=== PATIENT | male | born 1930 ===

== ENCOUNTER 2017-02-27 09:14 | Observation (INO) | payer MEDICARE, OTHER ==
[2017-02-27 10:54] LABS: BASO # 0.1 K/uL (0.0-0.2); BASO % 1.7 % (0.0-2.0); EOS # 0.5 K/uL (0.0-0.7); EOS % 5.8 % (0.0-4.0); HEMOGLOBIN 12.2 g/dL (12.0-18.0); LYMPH # 2.1 K/uL (1.0-4.3); LYMPH % 26.7 % (20.0-40.0); MEAN CORPUSCULAR HGB CONC 32.6 g/dL (33.0-37.0); MEAN PLATELET VOLUME 10.6 fl (7.2-11.7); MONO # 0.6 K/uL (0.0-0.8); MONO % 7.3 % (0.0-10.0); NEUT # 4.6 K/uL (1.8-7.0); NEUT % 58.5 % (50.0-75.0); RBC 4.05 Mil/uL (4.40-5.90); RED CELL DISTRIBUTION WIDTH 13.9 % (11.5-14.5); WHITE BLOOD COUNT 7.8 K/uL (4.8-10.8)
[2017-02-27 11:04] LABS: CALCIUM 9.7 mg/dL (8.4-10.2); GFR AFRICAN-AMERICAN > 60; GFR NON-AFRICAN AMERICAN 57
[2017-02-27 11:06] LABS: BLOOD UREA NITROGEN 22 mg/dl (9-20)
[2017-02-27] MEDS ORDERED: Morphine 4 MG/ML VIAL IVP ONE (11:25)
--- NOTE | 2017-02-27 11:29 | ED PDOC ---
HPI: General Adult Time Seen by Provider: 02/27/17 09:46 Chief Complaint (Nursing): Abnormal Skin Integrity Chief Complaint (Provider): Abnormal Skin Integrity History Per: Patient History/Exam Limitations: no limitations Onset/Duration Of Symptoms: Days (x3 weeks) Current Symptoms Are (Timing): Still Present Additional Complaint(s): 86 year old male presents to the emergency department with a complaint of a right-sided chest wall pain with redness noted right above the pacemaker that started 3 weeks ago. States 1st pacemaker lasted about 11 years and the second pacemaker (the one he has in place now) is going to be 8 years. Reports he visited his ship pilot yesterday, 02/26/2017, who did not do anything to make him feel better. Patient has an upcoming appointment with his primary care doctor. Denies fever, cough, shortness of breath, abdominal pain, or chest pain. PMD: Dr. Seth Anderson MD Past Medical History Reviewed: Historical Data, Nursing Documentation, Vital Signs Vital Signs: Last Vital Signs Temp 98.1 F 02/28/17 12:36 Pulse 74 02/28/17 12:36 Resp 20 02/28/17 12:36 BP 137/86 02/28/17 12:36 Pulse Ox 94 L 02/28/17 12:36 - Medical History PMH: Diabetes, HTN - Surgical History Surgical History: Pacemaker Other surgeries: Multiple abdominal surgeries - Family History Family History: States: Unknown Family Hx - Living Arrangements Living Arrangements: With Family - Social History Current smoker - smoking cessation education provided: No Alcohol: None Drugs: Denies - Home Medications Home Medications: Ambulatory Orders Medication Instructions Recorded Ammonium Lactate 12% [Lac-Hydrin 1 applic TOP TID #1 bottle 02/28/17 12% Lotion (225 g)] Clobetasol 0.05% [Temovate CREAM] 1 applic TOP BID #1 tube 02/28/17 Econazole 1% [Spectazole Cr] 1 applic TP BID 30 Days #1 tube 02/28/17 Losartan [Cozaar] 50 mg PO DAILY tab 02/28/17 Metoprolol Succinate [Toprol XL] 25 mg PO DAILY tab 02/28/17 Mupirocin 2% Ointment [Bactroban 1 applic TOP BID #1 tube 02/28/17 Ointment] SITagliptin [Januvia] 50 mg PO DAILY tab 02/28/17 - Allergies Allergies/Adverse Reactions: Allergies Allergy/AdvReac Type Severity Reaction Status Date / Time No Known Allergies Allergy Verified 02/27/17 09:47 Review of Systems ROS Statement: Except As Marked, All Systems Reviewed And Found Negative (As per HPI, otherwise negative) Constitutional: Negative for: Fever Cardiovascular: Positive for: Other (Right sided chest wall pain with redness above the pacemaker). Negative for: Chest Pain Respiratory: Negative for: Cough, Shortness of Breath Gastrointestinal: Negative for: Abdominal Pain Physical Exam - Reviewed Nursing Documentation Reviewed: Yes Vital Signs Reviewed: Yes - Physical Exam Appears: Positive for: Well, No Acute Distress Head Exam: Positive for: NORMAL INSPECTION, NORMOCEPHALIC Skin: Positive for: Warm, Dry, Rash Cardiovascular/Chest: Positive for: Regular Rate, Rhythm, Other (Right chest region with erythema well demarcated around the pacemaker exactly above it. ). Negative for: Chest Non Tender, Murmur Respiratory: Positive for: Normal Breath Sounds. Negative for: Accessory Muscle Use, Respiratory Distress Gastrointestinal/Abdominal: Positive for: Normal Exam, Soft, Other (Multiple abdominal scars noted ). Negative for: Tenderness Extremity: Positive for: Normal ROM. Negative for: Pedal Edema Neurologic/Psych: Positive for: Alert, Oriented (x3) - Laboratory Results Result Diagrams: 02/27/17 10:51 02/28/17 07:06 - ECG O2 Sat by Pulse Oximetry: 96 (RA) Pulse Ox Interpretation: Normal - Radiology X-Ray: Interpreted by Me, Viewed By Me X-Ray Interpretation: No Acute Disease Medical Decision Making Medical Decision Making: Time: 1016 Initial Impression: Chest pain, Dermatitis or cellulitis Diff include ACS, skin infection Initial Plan: EKG Chest x-ray Morphine 2 mg IVP Reevaluation EKG: Atrial pace rhythm with left axis deviation. QRS note with RBBB. No ST changes at 71 bpm. Time: 1345 Admit to hospital: as observation in telemetry for chest pain and pacemaker pain under the care of Dr. Katy Chan~Attestation: Documented by Reba Paul, acting as a scribe for Patrick Mills MD. Provider Scribe~Attestation: All medical record entries made by the Scribe were at my direction and personally dictated by me. I have reviewed the chart and agree that the record accurately reflects my personal performance of the history, physical exam, medical decision making, and the department course for this patient. I have also personally directed, reviewed, and agree with the discharge instructions and disposition. Disposition - Clinical Impression Clinical Impression: Chest pain, Dermatitis - Patient ED Disposition Is Patient to be Admitted: Yes (observation in telemetry) Doctor Will See Patient In The: ED Counseled Patient/Family Regarding: Studies Performed, Diagnosis - Disposition Disposition Time: 13:45 Condition: STABLE - Pt Status Changed To: Hospital Disposition Of: Observation - POA Present On Arrival: None
[2017-02-27] MEDS ORDERED: Morphine 4 MG/ML VIAL ONE (11:30)
--- NOTE | 2017-02-27 14:33 | CP.PCM.HP ---
History of Present Illness - History of Present Illness History of Present Illness: CC: "Chest pain where my pacemaker is" HPI: 86 YO Male with PMH of HTN, DM, CAD and s/p pacemaker (8 yrs) presents to ED for R wall chest pain at pacemaker site. Pain stared 3 weeks ago, and has remained stable for the past 3 weeks. Described as a sharp pain around pacemaker site, lasting a few mins, no radiation, itchiness, and rates it as "moderate-severe." Denies palpitations, dyspnea, cough, n/v/d/c and remains afebrile. Of note, pt was seen by his [employer] field technician yesterday. In the ED: Morphine 2mg Chest x-ray EKG Trops CBC, CMP PMD: Dr. Anderson PMH: HTN, DM, CKD, CAD and s/p pacemaker (8 yrs) SurgHx: ex lap in 1978, pacemaker 8 yrs ago FH: hx of DM in family SH: lives in [facility] with Meds per ecw: Metropolol ER, amlodipine, Telmisartan, januvia, ferrous sulfate, diclofenac Allergies: NKDA Code: Full Present on Admission - Present on Admission Any Indicators Present on Admission: Yes Review of Systems - Constitutional Constitutional: absent: Fever, Headache, Weakness - Cardiovascular Cardiovascular: Chest Pain (R chest wall pain at pacemaker site ). absent: Edema, Palpitations - Respiratory Respiratory: absent: Cough, Dyspnea - Gastrointestinal Gastrointestinal: absent: Abdominal Pain, Constipation, Diarrhea - Genitourinary Genitourinary: absent: Difficulty Urinating, Dysuria - Musculoskeletal Musculoskeletal: absent: Muscle Weakness, Numbness, Stiffness, Tingling - Neurological Neurological: absent: Dizziness, Numbness, Headaches - Psychiatric Psychiatric: absent: Anxiety, Confusion - Endocrine Endocrine: absent: Fatigue, Palpitations Past Patient History - Past Medical History & Family History Past Medical History?: Yes - Past Social History Alcohol: None Drugs: Denies - CARDIAC Hx Hypertension: Yes Hx Pacemaker: Yes - ENDOCRINE/METABOLIC Hx Endocrine Disorders: Yes Hx Diabetes Mellitus Type 2: Yes - PSYCHIATRIC Hx Substance Use: No - SURGICAL HISTORY Hx Surgeries: Yes Other/Comment: Pacemaker x2, "liver and abdominal" - ANESTHESIA Hx Anesthesia: Yes Hx Anesthesia Reactions: No Meds Allergies/Adverse Reactions: Allergies Allergy/AdvReac Type Severity Reaction Status Date / Time No Known Allergies Allergy Verified 02/27/17 09:47 Physical Exam - Constitutional Appears: No Acute Distress - Head Exam Head Exam: ATRAUMATIC, NORMAL INSPECTION - Eye Exam Eye Exam: EOMI, Normal appearance - ENT Exam ENT Exam: Mucous Membranes Moist - Neck Exam Neck exam: Positive for: Full Rom - Respiratory Exam Respiratory Exam: Clear to Auscultation Bilateral, NORMAL BREATHING PATTERN. absent: Wheezes - Cardiovascular Exam Cardiovascular Exam: Clicks (pacemaker ), REGULAR RHYTHM, +S1, +S2 Additional comments: Mild erythema and excoriation noted around pacemaker site No tenderness to palpation No breaks in skin, no edema noted - GI/Abdominal Exam GI & Abdominal Exam: Normal Bowel Sounds, Soft. absent: Tenderness - Extremities Exam Extremities exam: Positive for: full ROM, normal inspection. Negative for: calf tenderness, pedal edema - Back Exam Back exam: NORMAL INSPECTION - Neurological Exam Neurological exam: Alert, Oriented x3 - Psychiatric Exam Psychiatric exam: Normal Affect, Normal Mood - Skin Skin Exam: Dry, Intact, Normal Color, Warm Results - Vital Signs Recent Vital Signs: Last Vital Signs Temp 98.3 F 02/27/17 09:22 Pulse 81 02/27/17 09:22 Resp 17 02/27/17 09:22 BP 158/78 H 02/27/17 09:22 Pulse Ox 96 02/27/17 14:03 - Labs Result Diagrams: 02/27/17 10:51 02/27/17 10:51 Labs: Laboratory Results - last 24 hr 02/27/17 02/27/17 10:51 10:51 WBC 7.8 RBC 4.05 L Hgb 12.2 Hct 37.2 MCV 92.0 MCH 30.0 MCHC 32.6 L RDW 13.9 Plt Count 196 MPV 10.6 Neut % (Auto) 58.5 Lymph % (Auto) 26.7 [place] % (Auto) 7.3 Eos % (Auto) 5.8 H Baso % (Auto) 1.7 Neut # 4.6 Lymph # 2.1 [place] # 0.6 Eos # 0.5 Baso # 0.1 Sodium 142 Potassium 5.3 H Chloride 104 Carbon Dioxide 28 Anion Gap 15 BUN 22 H Creatinine 1.2 Est GFR ( Amer) > 60 Est GFR (Non-Af Amer) 57 Random Glucose 123 H Calcium 9.7 Troponin I 0.0170 Assessment & Plan - Assessment and Plan (Free Text) Assessment: Assessment/Plan: 86 YO Male with PMH of HTN, DM, CAD and s/p pacemaker (8 yrs) is admitted to [facility] for chest pain and pacemaker pain. 1) R chest wall tenderness -mild erythema around pacemaker site -likely 2/2 to cutaneous irritation, itching -unlikely to be cardiac in origin, r/o ACS -trops x 1 neg, follow up -no acute ekg changes; EKG read by me atrial pace rhythm with a rate of 71 bpm, no acute ST changes -chest x-ray; no active disease -team spoke to [employer] field technician Dr. Gilliland, pt is cleared by cardiology and follow up as outpatient. To be consulted if elevation in troponin or arrhythmia is seen -ammonium lactate topically -hydrocortisone 1% topically -Tylenol for pain 2) HTN -controlled -metoprolol succinate 3) DM -controlled -continue Januvia 4) Pacemaker -no acute changed noted in EKG -continue equipment monitor phototypesetting 5) Hyperkalemia -mild elevation in K, K 5.3 -IV fluids -bnp in AM -monitor 6) Prophylaxis -Lovenox 40 sc
--- NOTE | 2017-02-27 14:40 | RAD ---
PROCEDURE: CHEST RADIOGRAPH, 1 VIEW HISTORY: chest pain COMPARISON: 07/05/2015 FINDINGS: LUNGS: Clear. PLEURA: No pneumothorax or pleural fluid seen. CARDIOVASCULAR: No radiographic findings to suggest acute or significant cardiovascular disease. Position/ configuration of pacemaker device: Satisfactory. OSSEOUS STRUCTURES: No significant abnormalities. VISUALIZED UPPER ABDOMEN: Normal. OTHER FINDINGS: None. IMPRESSION: No active disease. No acute/significant interval changes.
[2017-02-27] MEDS ORDERED: Dextrose 50% SYRINGE Inj (50 ml) IV PRN (15:09)
[2017-02-27] MEDS ORDERED: Glucagon Recombinant 1 mg Inj IM PRN (15:09)
[2017-02-27] MEDS ORDERED: Sodium Chloride 0.9% 1,000 ML IV SCH (15:30)
[2017-02-27] MEDS ORDERED: Pneumococcal 23-Valent Vaccine IM ONE (17:07)
[2017-02-27] MEDS: Metoprolol Succinate 25 mg XL Tab PO SCH (17:54)
[2017-02-27 18:05] VITALS: BMI 27.6
[2017-02-28 07:49] VITALS: RESP 20; TEMP 98.1
[2017-02-28 08:15] LABS: BLOOD UREA NITROGEN 22 mg/dl (9-20); CALCIUM 9.8 mg/dL (8.4-10.2); GFR AFRICAN-AMERICAN > 60; GFR NON-AFRICAN AMERICAN 52
[2017-02-28] MEDS ORDERED: Enoxaparin 40 mg Syringe SC SCH (09:00)
[2017-02-28] MEDS ORDERED: Metoprolol Succinate 25 mg XL Tab PO SCH (09:00)
[2017-02-28] MEDS: Metoprolol Succinate 25 mg XL Tab PO SCH (09:55)
--- NOTE | 2017-02-28 10:40 | CP.PCM.DIS ---
Provider - Provider Date of Admission: 02/27/17 13:45 Attending physician: Katy Irwin MD Time Spent in preparation of Discharge (in minutes): 20 Diagnosis - Discharge Diagnosis (1) Chest pain Status: Acute (2) Dermatitis Status: Acute Hospital Course - Lab Results Lab Results: Most Recent Lab Values WBC 7.8 K/uL (4.8-10.8) 02/27/17 10:51 RBC 4.05 Mil/uL (4.40-5.90) L 02/27/17 10:51 Hgb 12.2 g/dL (12.0-18.0) 02/27/17 10:51 Hct 37.2 % (35.0-51.0) 02/27/17 10:51 MCV 92.0 fl (80.0-94.0) 02/27/17 10:51 MCH 30.0 pg (27.0-31.0) 02/27/17 10:51 MCHC 32.6 g/dL (33.0-37.0) L 02/27/17 10:51 RDW 13.9 % (11.5-14.5) 02/27/17 10:51 Plt Count 196 K/uL (130-400) 02/27/17 10:51 MPV 10.6 fl (7.2-11.7) 02/27/17 10:51 Neut % (Auto) 58.5 % (50.0-75.0) 02/27/17 10:51 Lymph % (Auto) 26.7 % (20.0-40.0) 02/27/17 10:51 [place] % (Auto) 7.3 % (0.0-10.0) 02/27/17 10:51 Eos % (Auto) 5.8 % (0.0-4.0) H 02/27/17 10:51 Baso % (Auto) 1.7 % (0.0-2.0) 02/27/17 10:51 Neut # 4.6 K/uL (1.8-7.0) 02/27/17 10:51 Lymph # 2.1 K/uL (1.0-4.3) 02/27/17 10:51 [place] # 0.6 K/uL (0.0-0.8) 02/27/17 10:51 Eos # 0.5 K/uL (0.0-0.7) 02/27/17 10:51 Baso # 0.1 K/uL (0.0-0.2) 02/27/17 10:51 Sodium 142 mmol/l (132-148) 02/28/17 07:06 Potassium 4.8 MMOL/L (3.6-5.0) 02/28/17 07:06 Chloride 101 mmol/L (98-107) 02/28/17 07:06 Carbon Dioxide 32 mmol/L (22-30) H 02/28/17 07:06 Anion Gap 14 (10-20) 02/28/17 07:06 BUN 22 mg/dl (9-20) H 02/28/17 07:06 Creatinine 1.3 mg/dl (0.8-1.5) 02/28/17 07:06 Est GFR ( Amer) > 60 02/28/17 07:06 Est GFR (Non-Af Amer) 52 02/28/17 07:06 POC Glucose (mg/dL) 158 mg/dL (65-110) H 02/28/17 05:29 Random Glucose 130 mg/dL (75-110) H 02/28/17 07:06 Calcium 9.8 mg/dL (8.4-10.2) 02/28/17 07:06 Troponin I < 0.0120 ng/mL (0.00-0.120) 02/28/17 02:56 - Hospital Course Hospital Course: 86yo M with PMHx extensive cardiac hx including pacemaker placement admitted for chest pain with troponins x3 neg, EKG with no acute change. Acutely pt had right chest wall dermatitis treated with topical steroid and bactroban. Cardio Dr. Gilliland aware of admission. EP Dr. Olvera had pacemaker checked with [employer]. Discharge Exam - Head Exam Head Exam: ATRAUMATIC, NORMAL INSPECTION - Eye Exam Eye Exam: Normal appearance - ENT Exam ENT Exam: Mucous Membranes Moist - Neck Exam Neck exam: Full Rom, Normal Inspection - Respiratory Exam Respiratory Exam: NORMAL BREATHING PATTERN. absent: Chest Wall Tenderness - Cardiovascular Exam Cardiovascular Exam: REGULAR RHYTHM. absent: Systolic Murmur Additional comments: paced - GI/Abdominal Exam GI & Abdominal Exam: Normal Bowel Sounds, Soft - Extremities Exam Extremities exam: normal inspection - Neurological Exam Neurological exam: Alert, Oriented x3 - Skin Skin Exam: Dry, Warm Discharge Plan - Discharge Medications Prescriptions: Ammonium Lactate 12% [Lac-Hydrin 12% Lotion (225 g)] 1 applic TOP TID #1 bottle Clobetasol 0.05% [Temovate CREAM] 1 applic TOP BID #1 tube Mupirocin 2% Ointment [Bactroban Ointment] 1 applic TOP BID #1 tube - Follow Up Plan Condition: STABLE Disposition: HOME/ ROUTINE Additional Instructions: Follow up with PCP at [facility], 03/09/16, 2PM apply bactroban and clobetasol to right chest area no topical rubbing alcohol. gentle cleansers Referrals: [facility] [Provider Group]
[2017-02-28 12:36] VITALS: BP 137/86; PULSE 74
--- NOTE | 2017-02-28 13:17 | CARD ---
APPROVED REPORT EKG Measurement Heart [id number] CT [id number] <Conclusion> Atrial-paced rhythm with one inherent atrial beat with normal ventricular conduction Left axis deviation Right bundle branch block Septal infarct, age undetermined Abnormal ECG
[2017-03-01 12:46] VITALS: O2SAT 96
--- NOTE | 2017-03-03 09:03 | CON ---
DATE: 02/28/2017 INPATIENT ELECTROPHYSIOLOGY CONSULTATION REFERRING PHYSICIAN: Josep Gilliland MD. REASON FOR EVALUATION: 1. Sick sinus syndrome. 2. Status post permanent pacemaker, which is a [employer]. 3. Dermatitis. HISTORY OF PRESENT ILLNESS: Mr. Gustabo Milian is an 86-year-old male with past medical history significant for hypertension, diabetes, coronary artery disease, status post permanent pacemaker, who presents to the emergency department with right-sided chest wall discomfort described as an intermittent sharp pain around his pacemaker site. Of note, the patient follows up regularly with Dr. Josep Gilliland, noticed around 2 months ago that the patient had a skin eruption at around the pacemaker incision site. This eruption gradually got worse to the point where he sought medical attention. He was assured by Dr. Gilliland that there was appropriate pacemaker function; however, subsequently developed phyllis-pacemaker right-sided sharp chest pain. Discomfort lasted a few minutes, he came to the emergency department for further evaluation and management. At this point, the patient is asymptomatic. In his history, he does not note any recent changes in soaps, lotions, or laundry detergent. He has been using a different type of deodorant approximately 2 months ago, he also noted an episode where he was putting lotion at around his pacemaker site and he had some strange sensation there. This also attempted about 2 months ago. He denies any prior exertional chest pain, dizziness, light headedness, or syncope. He denies any palpitations, dyspnea on exertion, cough, nausea, vomiting, diarrhea, fevers, chills, or heat or cold intolerance. PAST MEDICAL HISTORY: Significant for hypertension, diabetes, chronic kidney disease, and coronary artery disease. He has a second pacemaker replacement 8 years ago and he claims his first pacemaker was put in approximately 20 years ago, this was done at [facility]. FAMILY HISTORY: Positive for diabetes. SOCIAL HISTORY: Lives with his in [place]. He has full support. Medications which have not changed appreciably include metoprolol, extended-release amlodipine, telmisartan, Januvia, ferrous sulfate, and diclofenac. ALLERGIES: THE PATIENT HAS NO KNOWN DRUG ALLERGIES. REVIEW OF SYSTEMS: Again, denies fevers, chills, headache, or weakness. The aforementioned episodic right-sided chest wall discomfort noted, but no exertional chest pain or palpitations. No edema, presyncope, or syncope. Denies any cough, wheezes, or sputum production. No nausea, vomiting, diarrhea, constipation, change of bowel habits, weight gain, or weight loss. Genitourinary review does come up positive for some issues with urinating, dysuria. No musculoskeletal complaints, no psychosocial stressors, no fatigue, palpitations, heat or cold intolerance. LABORATORY DATA: On review of relevant lab work, the patient's white count of 7.8, H and H 12.2 and 37.2, platelet count of 196. Potassium initially was 4.8, subsequently at 5.3. Creatinine is within normal limits, calcium is within normal limits. Glucose does appear to be in the 120s to 130s. Serial troponins are negative. EKG, which was done on 02/27/2017, shows atrial pacing at 71 beats per minute. EKG suggests unipolar atrial pacing. 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 There is no clear ventricular pacing. Nonspecific ST-T wave changes are noted. Chest x-ray, which was done yesterday as well, shows no radiographic evidence to suggest acute or significant cardiovascular disease. Position configuration of the pacemaker appears to be "satisfactory." On review of the x-ray myself, permanent pacemaker is a dual-chamber device, there appears to be tined leads or passive fix leads with satisfactory lead placement. Cardiac silhouette, cardiac borders appear to be within normal limits. PHYSICAL EXAMINATION: VITAL SIGNS: Temperature is 98, pulse rate of 71, blood pressure is 166/61. On telemetry, a paced rhythm. GENERAL: He is a well-developed, well-nourished, very pleasant male, in no acute distress. HEENT: Head is normocephalic, atraumatic. There is no boby facial asymmetry. He does wear glasses. He appears to wear dentures. NECK: Supple. No jugular venous distention, no carotid bruits. CHEST: Clear to auscultation bilaterally. CARDIOVASCULAR: Regular rate and rhythm. S1 and S2. No S3 or S4. PMI is mildly displaced. The right chest is notable for a well-seated pacemaker. There is an appearance of a dermatitic process at or above the permanent pacemaker site. There is no drainage or pustules per se, and this is localized directly over the permanent pacemaker. ABDOMEN: Soft, nontender, and nondistended. Positive bowel sounds. EXTREMITIES: No cyanosis, clubbing, or edema. Peripheral pulses are 2+ and symmetric in bilateral upper and lower extremities. ASSESSMENT: 1. Sick sinus syndrome with apparently normal reported permanent pacemaker function. The patient appears to be appropriately atrial pacing. We will ask [employer] to come and interrogate his device, there was a mention that the patient's battery life may be on the lower end and perhaps may need replacement at some point. We will confirm this with re-interrogation. 2. Permanent pacemaker, which is believed to be a [employer] dual chamber permanent pacemaker with chronic indwelling leads, again we will interrogate the device to assess function. 3. Dermatitis of unclear etiology. The patient does regularly put on lotion, it is unclear whether 2 months ago, perhaps he was using a new lotion, may be this caused some local reaction, which has then since gotten worse. There does not appear to any issues with permanent pacemaker pocket. Last instrumentation with pacemaker was 8 years ago, unlikely to be a reaction of the pacemaker housing and local tissues. Would suggest at some point he see a certified medicine aide, 1% steroid cream has been ordered. We will see if this improves his situation. 4. Hypertension. The patient is to be continued on his current antihypertensives. 5. Coronary artery disease, atherosclerotic heart disease. Further management as per Dr. Gilliland. Thank you for allowing me to participate in the care of your patient. Please do not hesitate to call if you have any questions in regards to his care. Yours sincerely, Nestor Howard MD cc: MD Katy Rivera MD Dr. Ting Tu
== END 2017-02-28 15:10 | disposition home or self-care (01) ==
LOC: H.ER 09:14 → H.ERHOLD 13:45 → H.TEL 15:29
PROVIDERS: ADMIT Family Medicine Geriatric Medicine; ATTEND Family Medicine Geriatric Medicine
DX: L30.9 Dermatitis, unspecified (principal); I49.5 Sick sinus syndrome; I25.10 Atherosclerotic heart disease of native coronary artery without angina pectoris; I12.9 Hypertensive chronic kidney disease with stage 1 through stage 4 chronic kidney disease, or unspecified chronic kidney disease; N18.9 Chronic kidney disease, unspecified; L03.90 Cellulitis, unspecified; E87.5 Hyperkalemia; E11.22 Type 2 diabetes mellitus with diabetic chronic kidney disease; Z79.899 Other long term (current) drug therapy; Z95.0 Presence of cardiac pacemaker; Z83.3 Family history of diabetes mellitus; F17.200 Nicotine dependence, unspecified, uncomplicated
CPT/HCPCS: 36415; 71045; 80048; 82948; 84484; 85025; 90732; 93005; 93288; 96374; 99285; G0009; G0378; J1650; J2270

== ENCOUNTER 2017-07-02 07:05 | Day surgery (SDC) | payer MEDICARE, SELFPAY ==
[2017-06-17 11:32] VITALS: BMI 27.4
[2017-07-02] MEDS ORDERED: Lactated Ringer's 500 ML IV ONE (07:31)
[2017-07-02] MEDS ORDERED: Etomidate 20 mg/10ml Inj IV ONE (07:40)
[2017-07-02] MEDS ORDERED: Propofol 10 mg/ml Inj (20 ML) ONE (07:40)
[2017-07-02 07:54] VITALS: TEMP 96.8
[2017-07-02 09:15] VITALS: BP 165/71; PULSE 60; RESP 17; O2SAT 100
== END 2017-07-02 09:38 | disposition home or self-care (01) ==
LOC: H.ENDO 07:05
PROVIDERS: ATTEND Internal Medicine Gastroenterology
DX: R13.10 Dysphagia, unspecified (principal); E11.9 Type 2 diabetes mellitus without complications; E78.5 Hyperlipidemia, unspecified; I10 Essential (primary) hypertension; K29.70 Gastritis, unspecified, without bleeding; Z98.0 Intestinal bypass and anastomosis status
CPT/HCPCS: 43239; 82948; 88305; J2001; J2704; J7120

== ENCOUNTER 2018-01-05 09:39 | Emergency (ER) | payer MEDICARE, SELFPAY ==
[2018-01-05 09:40] VITALS: BMI 27.4
[2018-01-05 10:11] VITALS: RESP 18; TEMP 97.6; O2SAT 96
--- NOTE | 2018-01-05 10:30 | ED PDOC ---
HPI: Skin/Bite Injury Time Seen by Provider: 01/05/18 10:04 Chief Complaint (Nursing): Abnormal Skin Integrity Chief Complaint (Provider): I have a pimple on neck History Per: Patient History/Exam Limitations: no limitations Current Symptoms Are (Timing): Still Present Location Of Injury: Posterior: Neck Quality Of Symptoms: Painful Severity: Mild Additional Complaint(s): 87yo male c/o painful pimple to posterior neck, noticed a pimple to area yesterday. Denies fever, weakness, headache, pain with motion of neck, other skin problems/ infections or back pain/headache. Past Medical History Reviewed: Historical Data, Nursing Documentation, Vital Signs Vital Signs: Last Vital Signs Temp 97.6 F 01/05/18 10:08 Pulse 73 01/05/18 10:08 Resp 18 01/05/18 10:08 BP 161/74 H 01/05/18 10:08 Pulse Ox 96 01/05/18 10:08 - Medical History PMH: Arthritis, Diabetes, HTN, Hypercholesterolemia Denies: HIV, Chronic Kidney Disease - Surgical History Surgical History: Pacemaker - Family History Family History: States: Unknown Family Hx - Living Arrangements Living Arrangements: With Family - Home Medications Home Medications: Ambulatory Orders Medication Instructions Recorded RX: Metoprolol Succinate XL 25 mg PO DAILY tab 02/28/17 [Toprol XL] RX: SITagliptin [Januvia] 50 mg PO DAILY tab 02/28/17 Pantoprazole [Protonix] 40 mg PO DAILY 07/02/17 amLODIPine [Norvasc] 5 mg PO DAILY 07/02/17 Cephalexin [cephalexin] 500 mg PO TID #21 cap 01/05/18 RX: Ibuprofen [Motrin Tab] 400 mg PO Q6 PRN #12 tab 01/05/18 - Allergies Allergies/Adverse Reactions: Allergies Allergy/AdvReac Type Severity Reaction Status Date / Time No Known Allergies Allergy Verified 01/05/18 10:11 Review of Systems ROS Statement: Except As Marked, All Systems Reviewed And Found Negative Constitutional: Negative for: Fever, Chills, Malaise Eyes: Negative for: Vision Change, Eyelid Inflammation ENT: Negative for: Ear Pain Cardiovascular: Negative for: Chest Pain Respiratory: Negative for: Shortness of Breath Gastrointestinal: Negative for: Abdominal Pain Musculoskeletal: Positive for: Neck Pain. Negative for: Shoulder Pain, Arm Pain Skin: Negative for: Rash, Lesions Neurological: Negative for: Weakness, Numbness, Seizures Physical Exam - Reviewed Nursing Documentation Reviewed: Yes Vital Signs Reviewed: Yes - Physical Exam Appears: Positive for: Well, Non-toxic Head Exam: Positive for: ATRAUMATIC Skin: Positive for: Normal Color, Warm, Dry Eye Exam: Positive for: Normal appearance, EOMI ENT: Negative for: Tonsillar Exudate, Tonsillar Swelling Neck: Positive for: Supple (+small faruncle w minimal erythema, no fluctuance, minimal induration approx 2cm at hairline posteriorly), Trachea Midline. Negative for: Decreased ROM, Limited ROM, Pain On Movement Of Neck Cardiovascular/Chest: Positive for: Regular Rate, Rhythm Neurologic/Psych: Positive for: Alert, drainage inspector II-XII, Oriented, Gait (stable). Negative for: Motor/Sensory Deficits - ECG O2 Sat by Pulse Oximetry: 96 Medical Decision Making Medical Decision Making: accucheck performed, normal initiate keflex and wound check 2-3 days at clinic. Warm compresses. No fluctuance now, minimal induration, no indiction for I&D at this time. Disposition - Clinical Impression Clinical Impression: Carbuncle and furuncle - Patient ED Disposition Is Patient to be Admitted: No Counseled Patient/Family Regarding: Studies Performed, Diagnosis - Disposition Referrals: [facility] [Outside] Disposition Time: 11:01 Condition: STABLE Additional Instructions: SEE CLINIC THIS THURSDAY AT 1PM WITH DR CERVANTES FOR WOUND CHECK. Use warm compress to area 4x daily for 20minutes. Return to ER for any worse swelling, drainage, fever or pain. Take ANTIBIOTIC AND PAIN MEDICINE as directed. Prescriptions: Cephalexin [cephalexin] 500 mg PO TID #21 cap RX: Ibuprofen [Motrin Tab] 400 mg PO Q6 PRN #12 tab PRN Reason: Pain, Moderate (4-7) Instructions: Boil (DC) Forms: [employer] (Icelandic) Print Language: ROMANIAN
[2018-01-05 10:57] VITALS: BP 143/82; PULSE 74
== END 2018-01-05 11:38 | disposition home or self-care (01) ==
LOC: H.ER 09:39
DX: L02.93 Carbuncle, unspecified (principal); E11.9 Type 2 diabetes mellitus without complications; E78.00 Pure hypercholesterolemia, unspecified; I10 Essential (primary) hypertension; Z95.0 Presence of cardiac pacemaker

== ENCOUNTER 2018-05-21 09:34 | Emergency (ER) | payer MEDICARE ==
[2018-05-21 10:14] VITALS: TEMP 97.7
[2018-05-21 10:21] VITALS: BMI 27.4
[2018-05-21 10:24] VITALS: O2SAT 96
--- NOTE | 2018-05-21 10:54 | ED PDOC ---
HPI: Chest Pain Time Seen by Provider: 05/21/18 09:56 Chief Complaint (Nursing): Chest Pain Chief Complaint (Provider): Chest Pain History Per: Patient History/Exam Limitations: no limitations Onset/Duration Of Symptoms: Days Current Symptoms Are (Timing): Still Present Additional Complaint(s): 87 year old male with a past medical history of hypertension and atrial fi brillation who is presenting to the ED for evaluation of rash to right side of chest ongoing for 1 week. Patient states that the area has been painful for 2 weeks but noted itchy rash to same area approximately 1 week ago. He reports that he had a pacemaker surgery 9 years ago and denies any history of shingles. Patient denies taking any blood thinners and denies any shortness of breath or any other medical complaints. PMD: Clinic, Dr. Anderson Past Medical History Reviewed: Historical Data, Nursing Documentation, Vital Signs Vital Signs: Last Vital Signs Temp 97.7 F 05/21/18 09:45 Pulse 63 05/21/18 10:16 Resp 16 05/21/18 10:16 BP 157/82 H 05/21/18 10:16 Pulse Ox 96 05/21/18 10:16 - Medical History PMH: Arthritis, Atrial Fibrillation, Diabetes, HTN, Hypercholesterolemia Denies: HIV, Chronic Kidney Disease - Surgical History Surgical History: Pacemaker - Family History Family History: States: Unknown Family Hx - Social History Current smoker - smoking cessation education provided: No Alcohol: None Drugs: Denies - Home Medications Home Medications: Ambulatory Orders Medication Instructions Recorded Metoprolol Succinate XL [Toprol XL] 25 mg PO DAILY tab 02/28/17 SITagliptin [Januvia] 50 mg PO DAILY tab 02/28/17 Pantoprazole [Protonix] 40 mg PO DAILY 07/02/17 amLODIPine [Norvasc] 5 mg PO DAILY 07/02/17 Acyclovir [Zovirax] 800 mg PO 5XD 7 Days tablet 05/21/18 Gabapentin 300 mg PO TID #30 capsule 05/21/18 - Allergies Allergies/Adverse Reactions: Allergies Allergy/AdvReac Type Severity Reaction Status Date / Time No Known Allergies Allergy Verified 01/05/18 10:11 Review of Systems ROS Statement: Except As Marked, All Systems Reviewed And Found Negative Cardiovascular: Positive for: Chest Pain Skin: Positive for: Rash Physical Exam - Reviewed Nursing Documentation Reviewed: Yes Vital Signs Reviewed: Yes - Physical Exam Appears: Positive for: Non-toxic, No Acute Distress Head Exam: Positive for: ATRAUMATIC, NORMAL INSPECTION, NORMOCEPHALIC Skin: Positive for: Warm, Rash (erythematous rash with tenderness localized to pacemaker area on right chest, 10 cm in diameter) Eye Exam: Positive for: EOMI, Normal appearance, PERRL Cardiovascular/Chest: Positive for: Regular Rate, Rhythm. Negative for: Murmur Respiratory: Positive for: Normal Breath Sounds. Negative for: Respiratory Dist ress Gastrointestinal/Abdominal: Positive for: Normal Exam, Soft. Negative for: Tenderness Extremity: Positive for: Normal ROM. Negative for: Deformity, Swelling Neurological/Psych: Positive for: Awake, Alert, Normal Tone, Oriented. Negative for: Motor/Sensory Deficits - Laboratory Results Result Diagrams: 05/21/18 10:38 05/21/18 10:38 - ECG ECG Rhythm: Positive for: Normal ST Segment, Atrial Paced, Right Bundle Branch Block Rate: 74 O2 Sat by Pulse Oximetry: 96 (RA) Pulse Ox Interpretation: Normal - Progress Re-evaluation Time: 13:40 Condition: Re-examined, Improved Medical Decision Making Medical Decision Making: Time: 10:17 Impression: rash to right chest Differentials: Shingles, eczema, psoriasis Plan: --EKG --BMP --Troponin --CBC --CXR -------- --------- Scribe Attestation: Documented by Reyna Mora, acting as a scribe for Patrick Mills MD. Provider Scribe Attestation: All medical record entries made by the Scribe were at my direction and personally dictated by me. I have reviewed the chart and agree that the record accurately reflects my personal performance of the history, physical exam, medical decision making, and the department course for this patient. I have also personally directed, reviewed, and agree with the discharge instructions and di sposition. Disposition - Clinical Impression Clinical Impression: Rash, Chest pain - Patient ED Disposition Is Patient to be Admitted: No Doctor Will See Patient In The: Office Counseled Patient/Family Regarding: Studies Performed, Diagnosis, Need For Followup - Disposition Referrals: Seth Anderson MD [Family Provider] - Disposition: Routine/Home Disposition Time: 13:46 Condition: GOOD Additional Instructions: CAMRON OLIVARES, thank you for letting us take care of you today. Your provider was Patrick Mills MD and you were treated for CHEST PAIN. The emergency medical care you received today was directed at your acute symptoms. If you were prescribed any medication, please fill it and take as directed. It may take several days for your symptoms to resolve. Return to the Emergency Department if your symptoms worsen, do not improve, or if you have any other problems. Please contact your doctor or call one of the physicians/clinics you have been referred to that are listed on the Patient Visit Information form that is included in your discharge packet. Bring any paperwork you were given at discharge with you along with any medications you are taking to your follow up visit. Our treatment cannot replace ongoing medical care by a primary care provider outside of the emergency department. Thank you for allowing the [facility] team to be part of your care today. If you had an X-Ray or CT scan: A Radiologist will review the ED reading if any change in treatment is needed we will contact you. Prescriptions: Acyclovir [Zovirax] 800 mg PO 5XD 7 Days tablet Gabapentin 300 mg PO TID #30 capsule Instructions: Chest Pain, Skin Rash (DC) Forms: [employer] (Sudanese)
[2018-05-21 11:07] LABS: BASO # 0.1 K/uL (0.0-0.2); BASO % 0.7 % (0.0-2.0); EOS # 0.2 K/uL (0.0-0.7); EOS % 2.3 % (0.0-4.0); HEMOGLOBIN 12.3 g/dL (12.0-18.0); LYMPH % 24.3 % (20.0-40.0); MEAN CELL VOLUME 91.2 fl (80.0-94.0); MEAN CORPUSCULAR HGB CONC 32.9 g/dL (33.0-37.0); MONO # 0.6 K/uL (0.0-0.8); MONO % 7.4 % (0.0-10.0); NEUT # 5.4 K/uL (1.8-7.0); NEUT % 65.3 % (50.0-75.0); RBC 4.08 Mil/uL (4.40-5.90); RED CELL DISTRIBUTION WIDTH 14.3 % (11.5-14.5); WHITE BLOOD COUNT 8.2 K/uL (4.8-10.8)
--- NOTE | 2018-05-21 11:12 | RAD ---
Date of service: 05/21/2018 HISTORY: pacemaker pain COMPARISON: Frontal chest radiograph 02/27/2017. TECHNIQUE: 1 view obtained. FINDINGS: LUNGS: No active pulmonary disease. PLEURA: No significant pleural effusion identified, no pneumothorax apparent. CARDIOVASCULAR: Calcific atherosclerotic changes are seen related to the thoracic aorta. Normal cardiac size. No pulmonary vascular congestion. Bipolar permanent cardiac pacemaker reiterated. OSSEOUS STRUCTURES: No significant abnormalities. VISUALIZED UPPER ABDOMEN: Surgical clips again noted left upper quadrant abdomen. OTHER FINDINGS: None. IMPRESSION: No interval acute cardiopulmonary disease appreciated. Maker reiterated.
[2018-05-21 11:19] LABS: BLOOD UREA NITROGEN 23 mg/dl (9-20); CALCIUM 9.9 mg/dL (8.4-10.2); GFR NON-AFRICAN AMERICAN 52
[2018-05-21 14:12] VITALS: BP 158/74; PULSE 64; RESP 16
--- NOTE | 2018-05-21 19:26 | CARD ---
APPROVED REPORT Date of service: 05/21/2018 EKG Measurement Heart [id number] <Conclusion> Atrial-paced rhythm Left axis deviation Right bundle branch block Abnormal ECG
== END 2018-05-21 14:13 | disposition home or self-care (01) ==
LOC: H.ER 09:34
DX: R07.89 Other chest pain (principal); R21 Rash and other nonspecific skin eruption; E11.9 Type 2 diabetes mellitus without complications; E78.00 Pure hypercholesterolemia, unspecified; I10 Essential (primary) hypertension; I45.10 Unspecified right bundle-branch block; I48.91 Unspecified atrial fibrillation; Z79.899 Other long term (current) drug therapy; Z95.0 Presence of cardiac pacemaker